=== PATIENT | female | born 1970 | race Caucasian/White ===

== ENCOUNTER → 2024-10-21 | Outpatient (CLI) | payer MEDICAID, SELFPAY ==
[2024-10-21 12:01] LABS: Absolute Lymphocyte Count 2.78 X10^3/uL (0.83-4.51); Absolute Neutrophil Count 6.2 X10^3/uL (2.0-7.7); Eosinophil# 0.58 X10^3/uL; Eosinophils% 5.6 % (0-5); Hematocrit 40.8 % (37-47); Hemoglobin 13.4 g/dL (12.0-15.0); Lymphocyte # 2.78 X10^3/ul (0.83-4.51); Lymphocyte % 26.8 % (19-41); Mean Corp Hgb Conc 32.8 g/dL (32-36); Mean Corpuscular Hgb 29.8 pg (27.0-32.0); Mean Corpuscular Volume 90.9 fL (81-99); Mean Platelet Vol. 11.6 fl (6.2-12.0); Monocyte# 0.65 X10^3/uL; Monocyte% 6.3 % (0-10); NRBC Flagged by Analyzer 0 % (0-5); Neutrophil # 6.24 X10^3/uL (2.7-7.7); Platelet Count 228 K/mm3 (150-450); RBC Distribution Width CV 13.7 % (11.6-14.6); RBC Distribution Width SD 46.2 fl (35.1-43.9); Red Blood Count 4.49 M/mm3 (4.2-5.4); White Blood Count 10.4 K/mm3 (4.4-11.0)
[2024-10-26 00:07] LABS: Alternaria tenuis <0.10 kU/L (Class 0); Ash, White <0.10 kU/L (Class 0); Aspergillus fumigatus <0.10 kU/L (Class 0); Bermuda Grass <0.10 kU/L (Class 0); Birch <0.10 kU/L (Class 0); Black Walnut <0.10 kU/L (Class 0); Cat Hair / Dander,Stand <0.10 kU/L (Class 0); Cedar, Mountain <0.10 kU/L (Class 0); Cladosporium herbarum <0.10 kU/L (Class 0); Cockroach, American <0.10 kU/L (Class 0); Cottonwood <0.10 kU/L (Class 0); D farinae Mite 1.19 kU/L (Class II); D pteronyssinus 1.47 kU/L (Class III); Dog Epithelia <0.10 kU/L (Class 0); Elm, American White <0.10 kU/L (Class 0); Immunoglobulin E 96 IU/mL (6-495); Maple/Box Elder <0.10 kU/L (Class 0); Mouse Urine <0.10 kU/L (Class 0); Mulberry, White <0.10 kU/L (Class 0); Oak, White <0.10 kU/L (Class 0); Pecan <0.10 kU/L (Class 0); Penicillium Notatum <0.10 kU/L (Class 0); Pigweed, Rough <0.10 kU/L (Class 0); Ragweed, Short/Common <0.10 kU/L (Class 0); Russian Thistle <0.10 kU/L (Class 0); Sheep Sorrel <0.10 kU/L (Class 0); Sycamore, American <0.10 kU/L (Class 0); Timothy Grass <0.10 kU/L (Class 0)
[2024-10-27 18:08] LABS: Aspirgillus flavus Negative (Neg:<1:1); Aspirgillus fumigatus Negative (Neg:<1:1); Aspirgillus niger Negative (Neg:<1:1); Cytoplasmic Ab (C-ANCA) <1:20 titer (Neg:<1:20); Immunoglobulin E 107 IU/mL (6-495); Perinuclear Ab (P-ANCA) <1:20 titer (Neg:<1:20)
== END | disposition home or self-care (01) ==
PROVIDERS: Referring Provider Internal Medicine Critical Care Medicine; Visit Provider Internal Medicine Critical Care Medicine
DX: J45.909 Unspecified asthma, uncomplicated (principal)
CPT/HCPCS: 36415; 82785; 85025; 86003; 86037; 86606

== ENCOUNTER → 2024-11-02 | Outpatient (CLI) | payer MEDICAID, SELFPAY | END | disposition home or self-care (01) | LOC: PSN 08:03 | PROVIDERS: PCP Nurse Practitioner Family; Referring Provider Internal Medicine Critical Care Medicine; Visit Provider Internal Medicine Critical Care Medicine | DX: J45.909 Unspecified asthma, uncomplicated (principal) | CPT/HCPCS: 94060; 94726; 94729 ==

== ENCOUNTER → 2024-11-03 | Outpatient (CLI) | payer MEDICAID, SELFPAY ==
[2024-11-03 08:15] VITALS: PULSE 100; PULSE 102; PULSE 103; PULSE 106; PULSE 86; PULSE 92; O2SAT 98; O2SAT 99
--- NOTE | 2024-11-09 12:20 | PCM.PSN.6M ---
PSN 6 Minute Walk Test 6 Minute Walk Test 6 Minute Walk Test: 6 Minute Walk Test PSN:6-Minute Walk Test Start: 11/03/24 08:23 Freq: Status: Active Protocol: RESP.6MINW Document 11/03/24 08:15 [facility] (Rec: 11/03/24 08:27 [facility] [id number]) 6 Minute Walk Test Date Performed 11/03/24 Time Performed 08:15 Height 5 ft 3 in Weight: 190 lb Weight in Pounds 190.[address]: Assistive device used: None Pre-test Oxygen Delivery Method Room Air Pulse Ox (%) 99 Pulse Rate (60-100 beats/min) 86 Dyspnea Cortez Scale (0-10) 0 Exertion Cortez Scale (6-20) 6 1st minute Oxygen Delivery Method Room Air Pulse Ox (%) 98 Pulse Rate (60-100 beats/min) 100 2nd minute Oxygen Delivery Method Room Air Pulse Ox (%) 98 Pulse Rate (60-100 beats/min) 100 3rd minute Oxygen Delivery Method Room Air Pulse Ox (%) 98 Pulse Rate (60-100 beats/min) 106 H 4th minute Oxygen Delivery Method Room Air Pulse Ox (%) 98 Pulse Rate (60-100 beats/min) 103 H 5th minute Oxygen Delivery Method Room Air Pulse Ox (%) 99 Pulse Rate (60-100 beats/min) 102 H 6th minute Oxygen Delivery Method Room Air Pulse Ox (%) 98 Pulse Rate (60-100 beats/min) 103 H Dyspnea Cortez Scale (0-10) 2 Exertion Cortez Scale (6-20) 12 Post-test Oxygen Delivery Method Room Air Pulse Ox (%) 98 Pulse Rate (60-100 beats/min) 92 Full Laps Walked 20 Partial Lap, Number of Tiles Walked 17 Total Distance Walked (ft) 1197 Interpretation Interpretation: The patient ambulated 1197 feet over the course of 6 minutes beginning on room air without assistive devices. Pretesting oxygen saturation was noted to be 99% on room air. With ambulation, the tadeo oxygen saturation was 98%. There was no significant exertional oxygen desaturation. Recommendations Recommendations: There is no indication for the use of supplemental oxygen at this time.
== END | disposition home or self-care (01) ==
LOC: PSN 08:03
PROVIDERS: PCP Nurse Practitioner Family; Referring Provider Internal Medicine Critical Care Medicine; Visit Provider Internal Medicine Critical Care Medicine
DX: J45.909 Unspecified asthma, uncomplicated (principal)
CPT/HCPCS: 94618